=== PATIENT | female | born 1990 | race Caucasian/White ===

== ENCOUNTER 2023-04-16 22:49 | Emergency (ER) | payer MEDICAID ==
[~2023-04-16] VITALS: Ht 154.9 cm; Wt 61.4 kg
[2023-04-16 22:57] VITALS: TEMP 98
[2023-04-16 23:24] LABS: BASOPHILS # (AUTO) 0.1 X10'3 (0-0.2); BASOPHILS % (AUTO) 0.9 % (0-1); EOSINOPHILS # (AUTO) 0.1 X10'3 (0-0.9); EOSINOPHILS % (AUTO) 1.2 % (0-6); HEMATOCRIT 37.9 % (35.0-45.0); HEMOGLOBIN 12.9 g/dl (12.0-16.0); LYMPHOCYTES # (AUTO) 2.6 X10'3 (1.1-4.8); LYMPHOCYTES % (AUTO) 41.8 % (21-51); MEAN CORPUSCULAR HEMOGLOBIN 31.8 PG (27.0-31.0); MEAN CORPUSCULAR HGB CONC 34.1 g/dL (33.0-36.5); MEAN CORPUSCULAR VOLUME 93.3 FL (78-98); MEAN PLATELET VOLUME 7.4 FL (7.4-10.4); MONOCYTES # (AUTO) 0.3 X10'3 (0-0.9); MONOCYTES % (AUTO) 5.1 % (2-12); NEUTROPHILS # (AUTO) 3.2 X10'3 (1.8-7.7); PLATELET COUNT 310 X10'3 (140-440); RED BLOOD COUNT 4.06 X10'6 (4.20-5.60); RED CELL DISTRIBUTION WIDTH 12.4 % (11.5-14.5); WHITE BLOOD COUNT 6.3 X10'3 (4.5-11.0)
[2023-04-16 23:33] LABS: ALANINE AMINOTRANSFERASE 29 U/L (12-78); ALBUMIN 3.9 G/DL (3.4-5.0); ALBUMIN/GLOBULIN RATIO 1.1 (1.1-1.5); ALKALINE PHOSPHATASE 54 IU/L (46-116); ANION GAP 13 (8-16); ASPARTATE AMINO TRANSFERASE 15 U/L (10-37); BILIRUBIN,TOTAL 0.9 MG/DL (0.1-1.0); BLOOD UREA NITROGEN 12 MG/DL (7-18); BUN/CREATININE RATIO 11.8 (10.0-20.0); CALCIUM 8.8 MG/DL (8.5-10.1); CHLORIDE 101 MMOL/L (99-107); CREATININE 1.02 MG/DL (0.40-0.90); GLUCOSE 141 MG/DL (70-104); POTASSIUM 3.6 MMOL/L (3.5-5.1); SODIUM 140 MMOL/L (135-145); TOTAL CARBON DIOXIDE 26.3 MMOL/L (24-32); TOTAL PROTEIN 7.3 G/DL (6.4-8.2); eCRCL 60 ML/MIN; eGFR 63 ML/MIN
[2023-04-16 23:41] LABS: PRO BRAIN NATRIURETIC PEPTIDE 32 PG/ML (0-125)
[2023-04-17] MEDS ORDERED: LORazepam 1 MG tablet PO ONE (00:45)
[2023-04-17] MEDS ORDERED: LORA-269 PO (02:49)
[2023-04-17 03:17] VITALS: BP 104/65; PULSE 86; RESP 12; O2SAT 96
== END 2023-04-17 03:20 | disposition home or self-care (01) ==
LOC: ER 22:50
DX: F41.0 Panic disorder [episodic paroxysmal anxiety] (principal); Z79.899 Other long term (current) drug therapy
CPT/HCPCS: 36415; 71045; 80053; 83880; 84484; 85025; 93005; 99285

== ENCOUNTER 2023-08-27 14:28 | Emergency (ER) | payer MEDICAID ==
[~2023-08-27] VITALS: Ht 154.9 cm; Wt 57.8 kg
[~2023-08-27 14:28] MED LIST: LORA-269 PO
[2023-08-27 14:47] VITALS: BP 118/76; PULSE 94; TEMP 98.8; O2SAT 98
[2023-08-27 15:26] VITALS: RESP 16
== END 2023-08-27 18:46 | disposition home or self-care (01) ==
LOC: ER 14:28
DX: J10.1 Influenza due to other identified influenza virus with other respiratory manifestations (principal); R05.9 Cough, unspecified; Z72.89 Other problems related to lifestyle; Z79.899 Other long term (current) drug therapy
CPT/HCPCS: 99282

== ENCOUNTER 2023-08-28 12:18 | Emergency (ER) | payer MEDICAID ==
[~2023-08-28] VITALS: Ht 154.9 cm; Wt 59.1 kg
[2023-08-28 12:50] VITALS: BP 119/79; PULSE 93; RESP 18; TEMP 97.8; O2SAT 98
== END 2023-08-28 14:49 | disposition left against medical advice (07) ==
LOC: ER 12:19
DX: F41.9 Anxiety disorder, unspecified (principal); Z53.21 Procedure and treatment not carried out due to patient leaving prior to being seen by health care provider
CPT/HCPCS: 99281